=== PATIENT | male | born 1955 ===

== ENCOUNTER 2019-06-25 12:40 | Inpatient (IN) | payer OTHER ==
[~2019-06-25] VITALS: Ht 185.4 cm; Wt 113.2 kg
--- NOTE | ~2019-06-25 | HEMODYNAMI ---
PATIENT:SARKIS BERNARDO MEDICAL RECORD: [id number] : [birth year] [facility] ADMISSION DATE: 06/25/19 Generatedon:06/26/20199:07 Patient name: SARKIS BERNARDO Patient #: [id number] SSN: [id number] : 1955 Date of study: 06/26/2019 Page: Of Hemodynamic Procedure Report Patient Data Patient Demographics Procedure consent was obtained First Name: SARKIS Gender: Male Last Name: [place] : 1955 [facility] Initial: JUSTEN Age: 64 year(s) Patient #: [id number] Race: SSN: [id number] Additional ID: [id number] Contact details [address]: [address] [place] [address] State: [place] City: [place] Zip code: [address] Past Medical History Allergies: No allergy information Admission Admission Data Admission Date: 06/25/2019 Admission Time: 15:18 Arrival Date: 06/26/2019 Arrival Time: 0:00 Room #: D.2125 Height (in.): 72.83 BSA: 2.26 (m2) Height (cm.): 185 BMI: 29.8 (kg/m2) Weight (lbs.): 224.87 Weight (kg.): 102 Lab Results Lab Result Date: 06/26/2019 Lab Result Time: 0:00 Biochemistry Name Units Result Min Max BUN mg/dl 22 --(----)-* 7 18 Creatinine mg/dl 1.4 --(----)*- 0.6 1.3 eGFR ml/min 54 *-(----)-- 90 120 NONAFRICAN CBC Name Units Result Min Max Hematocrit % 36 *-(----)-- 42 54 Hemoglobin g/dl 12.4 *-(----)-- 13.5 17.5 Procedure Procedure Types Cath Procedure Diagnostic Procedure LHC LHC w/Coronaries Procedure Description Procedure Date Procedure Date: 06/26/2019 Procedure Start Time: 8:55 Procedure End Time: 9:02 Procedure Staff Name Function Rai Clark MD Performing Physician Zelda Stover RT Monitor Renita Hairston RT Scrub Tanvi Mon RN Nurse Procedure Data Cath Procedure Fluoroscopy Diagnostic fluoroscopy Total fluoroscopy Time: 1.4 time: 1.4 min min Diagnostic fluoroscopy Total fluoroscopy dose: 532 dose: 532 mGy mGy Contrast Material Contrast Material Type Amount (ml) Isovue 300 62 Entry Location Entry Primary Successful Side Size Upsize Upsize Entry Closure Succes sful Closure Location (Fr) 1 (Fr) 2 (Fr) Remarks Device Remarks Femoral Right 5 Fr Exoseal artery Estimated blood loss: 5 ml Diagnostic catheters Device Type Used For End Catheter Placement MULTIPACK Pigtail 5 Fr Procedure catheter MULTIPACK JL 4.0 5Fr Procedure catheter MULTIPACK 3DRC 5Fr Procedure catheter Procedure Complications No complications Procedure Medications Medication Administration Route Dosage Oxygen etCO2 Nasal cannula 2 l/min Lidocaine 2% added to field 20 Heparin Flush Bag added to field 2 bags (1000units/500ml NS) 0.9% NaCl I.V. 100 ml/hr Versed I.V. 1 mg Fentanyl I.V. 50 mcg Lopressor I.V. 5 mg Versed I.V. 1 mg Fentanyl I.V. 50 mcg Hemodynamics Rest BSA: 2.26 (m2) HGB: 12.4 (g/dl) O2 Consumption: Estimated: 300.08 (ml/min) O2 Co nsumption indexed: Estimated:132.78 (ml/min/m) Heart Rate: 111 (bpm) Snapshots Pre Cath Intra NCS Post Cath Vital Signs Time Heart Resp SPO2 etCO2 NIBP Rhythm Pain Sedation Rate (ipm) (%) (mmHg) (mmHg) Status Level (bpm) 8:41:40 112 27 97 29.1 125/87(93) NSR 0 (11) 10(A) , No pain 8:47:14 111 29 98 21.6 113/84(89) NSR 0 (11) 10(A) , No pain 8:51:22 116 22 94 34.3 117/75(94) NSR 0 (11) 10(A) , No pain 8:55:30 105 21 93 39.6 125/82(98) NSR 0 (11) 10(A) , No pain 8:59:39 96 18 93 46.3 122/75(88) NSR 0 (11) 10(A) , No pain Medications Time Medication Route Dose Verified Delivered Reason Notes Effe ctiveness by by 8:46:12 Oxygen etCO2 2 Rai Buffie used for Nasal l/min Amber Mon RN procedure cannula 8:46:23 Lidocaine 2% added 20ml Rai Rai for local to vial Amber Clark MD anesthetic field 8:46:29 Heparin Flush added 2 Rai Rai used for Bag to bags Amber Clark MD procedure (1000units/500ml field NS) 8:48:29 0.9% NaCl I.V. 100 Rai Buffie Per ml/hr Amber Mon RN physician 8:55:02 Fentanyl I.V. 50 [place] for mcg Amber Mon RN sedation 8:55:56 Versed I.V. 1 mg Rai Buffie for Amber Mon RN sedation 8:58:47 Versed I.V. 1 mg Rai Colvinie for Amber Mon RN sedation 8:58:51 Fentanyl I.V. 50 Rai Colvinie for mcg Amber Mon RN sedation 9:02:17 Lopressor I.V. 5 mg Rai Tinajero Per Amber Mon RN physician Procedure Log Time Note 8:25:48 Zelda Stover RT(R) sent for patient. Start room use. 8:33:44 Diagnostic Cath Status : Elective 8:34:34 Procedure Status Urgent Heart Cath (IP). 8:34:49 Time tracking: Regular hours (M-F 7:00 - 5:00) 8:34:54 Plan of Care:Hemodynamics will remain stable., Cardiac rhythm will remain stable., Comfort level will be maintained., Respiratory function will remain adequate., Patient/ family verbilizes understanding of procedure., Procedure tolerated without complication., Recovers from procedure without complications.. 8:35:57 Patient received from Med II to CCL 1 Alert and oriented. Tansferred to table in Supine position. 8:36:01 Signed procedure consent form obtained from patient. 8:36:02 Warm blankets applied, and kena hugger turned on for patient comfort. 8:36:02 Correct patient and procedure confirmed by team. 8:36:03 ECG and BP/O2 sat monitors applied to patient. 8:36:54 Patient allergic to No allergy information 8:37:02 Patient Weight : 224.87 lbs 8:37:06 Patient Height : 72.83 inches 8:37:12 Arrival Date: 06/26/2019 12:00:00 AM 8:40:36 Vital chart was started 8:40:41 Baseline sample Acquired. 8:40:44 Rhythm: atrial fibrillation 8:40:46 Full Disclosure recording started 8:40:51 H&P Date Dictated: 06/26/2019 New H&P dictated by physician.. 8:40:53 Pre-procedure instructions explained to patient. 8:40:54 Pre-op teaching completed and patient verbalized understanding. 8:41:00 Family in waiting room. 8:41:01 Patient NPO since Midnight. 8:41:04 Is the patient allergic to Iodine/contrast media? No. 8:41:06 Was the patient premedicated? No 8:41:07 Is patient on blood thinner?No 8:41:10 Patient diabetic? No. 8:41:12 Previous problem with sedation/anesthesia? No ? 8:41:14 Snore? Yes 8:41:19 Sleep apnea? No 8:41:20 Deviated septum? No 8:41:21 Opens mouth fully? Yes 8:41:22 Sticks out tongue? Yes 8:41:23 Airway obstruction? No ? 8:41:33 Dentures? Yes partial in tight 8:41:36 Pre procedure: right dorsailis pedis pulse 2+ Normal; easily identifiable; not easily obliterated 8:41:38 Pre procedure: left dorsailis pedis pulse 2+ Normal; easily identifiable; not easily obliterated 8:41:40 Patient pain scale 0/10 ?. 8:41:49 IV patent on arrival in left forearm with 0.9% NaCl at O. 8:41:51 Lab results completed and on chart. 8:41:55 Right Radial & Right Groin area was prepped with chlora-prep and draped in sterile fashion 8:41:56 Alarms reviewed by R. N. 8:41:57 Sharps counted by scrub and verified by R.N. 8:46:12 Oxygen 2 l/min etCO2 Nasal cannula was administered by Tanvi Mon RN; used for procedure; 8:46:23 Lidocaine 2% 20ml vial added to field was administered by Rai Clark MD; for local anesthetic; 8:46:29 Heparin Flush Bag (1000units/500ml NS) 2 bags added to field was administered by Rai Clark MD; used for procedure; 8:46:36 Lab Result : BUN 22 mg/dl 8:46:36 Lab Result : Creatinine 1.4 mg/dl 8:46:36 Lab Result : eGFR NONAFRICAN 54 ml/min 8:46:36 Lab Result : Hemoglobin 12.4 g/dl 8:46:36 Lab Result : Hematocrit 36 % 8:46:43 Use device set Femoral Dx 8:46:44 ACIST Syringe (78249) opened to sterile field. 8:46:44 Bag Decanter (2002S) opened to sterile field. 8:46:45 ACIST Hand Control (48390) opened to sterile field. 8:46:46 ACIST Manifold (66263) opened to sterile field. 8:46:47 Tegaderm 4 x 4 (1626W) opened to sterile field. 8:46:50 Medline Cath Pack ([id number]) opened to sterile field. 8:46:51 DIAGNOSTIC Multipack 5Fr catheter set (BJ0688) opened to sterile field. 8:46:51 SHEATH 5FR Milligan (LGB170) opened to sterile field. 8:46:52 EMERALD Guide Wire (657-392) opened to sterile field. 8:48:29 0.9% NaCl 100 ml/hr I.V. was administered by Tanvi Mon RN; Per physician; 8:53:01 Zero performed for pressure channel P1 8:53:54 --------ALL STOP TIME OUT------ 8:53:55 Final Timeout: patient, procedure, and site verified with staff and physician. All members of the team are in agreement. 8:53:58 Right groin site verified by team. 8:54:02 Fire Safety Assessment: A--An alcohol-based skin anteseptic being used preoperatively., C--Open oxygen or nitrous oxide is being used., D--An ESU, laser, or fiber-optic light is being used. 8:54:04 Physical assessment completed. ASA score P 2 - A patient with mild systemic disease as per Rai Clark MD. 8:54:08 3a) 45-59 Moderately reduced kidney function. 8:54:11 Maximum allowable contrast dose (3.7 X eGFR X 0.75)150 ml. 8:54:16 Sedation plan: IV Moderate Sedation Medication:Versed, Fentanyl 8:55:02 Fentanyl 50 mcg I.V. was administered by Tanvi Mon RN; for sedation; 8:55:51 Procedure started. 8:55:56 Versed 1 mg I.V. was administered by Tanvi Mon RN; for sedation; 8:55:59 Local anesthetic to right femoral artery with Lidocaine 2% by Rai Clark MD.INITIAL ACCESS ONLY 8:56:27 A 5 Fr sheath was inserted into the Right Femoral artery 8:56:39 A MULTIPACK Pigtail 5 Fr catheter was advanced over the wire and used for Procedure. 8:56:57 LV gram done using WINKLER 8:57:01 Injector settings: Ml/sec: 10, Volume: 20, 8:57:38 EF : 55 % 8:57:41 Catheter removed. 8:57:59 A MULTIPACK JL 4.0 5Fr catheter was advanced over the wire and used for Procedure. 8:58:47 Versed 1 mg I.V. was administered by Tanvi Mon RN; for sedation; 8:58:51 Fentanyl 50 mcg I.V. was administered by Tanvi Mon RN; for sedation; 8:59:27 LCA angiography performed. 8:59:29 Catheter removed. 8:59:54 A MULTIPACK 3DRC 5Fr catheter was advanced over the wire and used for Procedure. 9:00:29 RCA angiography performed. 9:00:30 Catheter removed. 9:00:36 EXOSEAL 5Fr (EX500) opened to sterile field. 9:01:11 Sheath removed intact; hemostasis achieved with Exoseal to the Right Femoral artery. 9:01:13 Procedure ended.(Physican Out) 9:01:50 Fluoroscopy time 01.40 minutes. 9::53 Fluoroscopy dose: 532 mGy 9::53 Flurop Dose total: 532 9:02:02 Dose Area Product 67080 mGy/cm. 9:02:06 Contrast amount:Isovue 300 62ml. 9:02:08 Maximum allowable dose exceeded? No. 9:02:11 Sharps counted by scrub and verified by R.N. 9:02:13 Post-op/insertion site Right Femoral artery dressed using a 4 x 4 and Tegaderm. 9:02:16 Post-procedure physical assessment completed. ASA score P 2 - A patient with mild systemic disease as per Rai Clark MD. 9:02:17 Lopressor 5 mg I.V. was administered by Tanvi Mno RN; Per physician; 9:02:18 Post procedure rhythm: unchanged. 9:02:21 Estimated blood loss: 5 ml 9:02:22 Post procedure instruction explained to patient.Patient verbalizes understanding. 9:02:22 Patient needs reinforcement of post procedure teaching. 9:02:45 Procedure and supply charges have been captured, reviewed, submitted and are correct. 9:02:48 Procedure Complication : No complications 9:02:50 Vital chart was stopped 9:02:50 See physician's report for complete and final results. 9:02:52 Report given to [facility]. 9:02:54 Patient transfered to [facility] with Bed. 9:02:56 Procedure ended. 9:02:56 Full Disclosure recording stopped 9:03:01 End room use (Document Last) Device Usage Item Name Manufacture Quantity Catalog Hospital Part Current Minimal L ot# / Number Charge Number Stock Stock Serial# Code ACIST Acist 1 10747 196045 270550 089948 20 Syringe Medical (89052) Systems Inc Bag Microtek 1 609636 45872 731336 5 Decanter Medical Inc. () ACIST Hand Acist 1 43845 034801 048963 298726 5 Control Medical (17210) Systems Inc ACIST Acist 1 70103 390621 290994 994104 5 Manifold Medical (23821) Systems Inc Tegaderm 4 3M 1 1626W 887238 244322 510789 5 x 4 (1626W) Medline Medline 1 [id number] 238103 28205 243482 5 Cath Pack ([id number]) DIAGNOSTIC Cardinal 1 WD1859 477221 42913 530743 30 Multipack Health 5Fr catheter set (VV0512) SHEATH 5FR Terumo 1 WXJ723 864072 725275 828759 5 Milligan (UDH813) EMERALD Cardinal 1 502-455 992722 814816 072111 5 Guide Wire Health (502-867) MULTIPACK Cardinal 1 918108 5 Pigtail 5 Health Fr catheter MULTIPACK Cardinal 1 680554 5 JL 4.0 5Fr Health catheter MULTIPACK Cardinal 1 845921 5 3DRC 5Fr Health catheter EXOSEAL 5Fr Cardinal 1 EX500 626754 485494 949101 10 (EX500) Health Signature Audit [place] Stage Time Signature Unsigned Intra-Procedure 06/26/2019 Zelda Stover 9:06:37 AM RT(R) Intra-Procedure 06/26/2019 Tanvi Mon RN 9:07:08 AM Intra-Procedure 06/26/2019 Rai Clark 9:07:31 AM [place] [id number] [place] [address]
[2019-06-25 15:25] VITALS: BP 145/93; BMI 29.7
--- NOTE | 2019-06-25 15:28 | NUR ---
RECIVED PER EMS FROM [facility] TO ROOM 2125. ADMIT ASSESSMENT PER RN
[2019-06-25 16:50] LABS: BASOPHILS 0.4 % (0-2); EOSINOPHILS 0 % (0-7); HEMATOCRIT 40.8 % (42.0-54.0); HEMOGLOBIN 14.4 g/dL (13.5-17.5); IMMATURE GRANULOCYTES 1.7 % (0-5); LYMPHOCYTES 20.6 % (15-50); MCH 30.6 pg (26.0-34.0); MCHC 35.3 g/dL (31.0-37.0); MCV 86.8 fL (80.0-100.0); MONOCYTES 5.7 % (2-11); NEUTROPHILS 71.6 % (40-80); PLATELET COUNT 119 10x3/uL (130-400); RDW 14.1 % (11.5-14.5); WBC 11.7 10x3/uL (4.8-10.8)
[2019-06-25 17:40] LABS: ALBUMIN 2.2 g/dL (3.4-5.0); ALKALINE PHOSPHATASE 354 U/L (46-116); ALT (SGPT) 274 U/L (10-68); AMYLASE - SERUM 44 U/L (25-115); BILIRUBIN - INDIRECT 0.31 mg/dL (0.00-1.00); BILIRUBIN - TOTAL 1.31 mg/dL (0.2-1.3); CALC OSMOLALITY 275 mosm/kg (275-300); CALCIUM 7.9 mg/dL (8.5-10.1); CARBON DIOXIDE 25.5 mmol/L (21.0-32.0); CHLORIDE - SERUM 101 mmol/L (98-107); GLUCOSE 104 mg/dL (74-106); LIPASE 150 U/L (73-393); POTASSIUM - SERUM 3.4 mmol/L (3.5-5.1); PROTEIN - SERUM 5.7 g/dL (6.4-8.2); SODIUM 137 mmol/L (136-145); UREA NITROGEN 17 mg/dL (7-18); eGFR NON AFRICAN AMERICAN 80 mL/min (90-120)
[2019-06-25 17:42] LABS: TROPONIN-I 0.065 ng/mL (0.000-0.060)
--- NOTE | 2019-06-25 19:35 | NUR ---
ASSESSMENT COMPLETE, PT A&O. RESPERATIONS NON LABORED ON O2 AT 2 LITERS VIA NC. IV TO LEFT ARM WITH WITH NS INFUSING AT 50 CC/HR. PT CURRENTLY DENIES PAIN OR NEEDS. BED LOW, CL IN REACH. MULTIPLE FAMILY MEMBERS AT BED SIDE.
[2019-06-25 20:15] VITALS: BP 123/77
--- NOTE | 2019-06-25 22:13 | NUR ---
CALLED TO ROOM, CHECKED PTS TEMP. 102 AX. TYLENOL 1000 MG GIVEN, ALONG WITH ICE PACKS TO PLACE UNDER PTS ARMS.
[2019-06-26 00:02] VITALS: BP 129/79
--- NOTE | 2019-06-26 03:23 | NUR ---
CHECKED PTS TEMP. 103.2 AX. MOTRIN 400 MG GIVEN WITH FRESH ICE WATER.
[2019-06-26 04:00] VITALS: BP 142/60
--- NOTE | 2019-06-26 04:30 | NUR ---
I have reviewed this patient and I concur with the Shift Assessment completed by the Licensed Practical Nurse today this shift.
[2019-06-26 06:23] LABS: HEMOGLOBIN 12.4 g/dL (13.5-17.5); MCH 30.2 pg (26.0-34.0); MCHC 34.4 g/dL (31.0-37.0); MCV 87.8 fL (80.0-100.0); MEAN PLATELET VOLUME 11.1 fL (7.4-10.4); PLATELET COUNT 126 10x3/uL (130-400); RDW 14.4 % (11.5-14.5); WBC 12.5 10x3/uL (4.8-10.8)
--- NOTE | 2019-06-26 06:30 | NUR ---
PT CLIPPED AND HIBICLENSE BATH GIVEN.
[2019-06-26 06:31] LABS: ALBUMIN 1.8 g/dL (3.4-5.0); ANION GAP 10.2 mmol/L (8-16); BILIRUBIN - TOTAL 1.05 mg/dL (0.2-1.3); CALCIUM 7.4 mg/dL (8.5-10.1); CARBON DIOXIDE 28.1 mmol/L (21.0-32.0); POTASSIUM - SERUM 3.3 mmol/L (3.5-5.1)
[2019-06-26 06:39] LABS: CREATININE - SERUM 1.4 mg/dL (0.6-1.3)
--- NOTE | 2019-06-26 08:32 | NUR ---
ASSESSMENT DONE. DENIES NEEDS
--- NOTE | 2019-06-26 08:32 | NUR ---
TO CANE PUSHER PER BED
[2019-06-26 08:45] VITALS: BP 107/60
--- NOTE | 2019-06-26 09:25 | NUR ---
RETURN FROM SUPERVISOR CEREAL PER BED. RT THEODORE POOLE C/D/I,. PULSE PALP. AT SIDE.
[2019-06-26 11:01] LABS: ANISOCYTOSIS OCC; LYMPHOCYTES 23 % (15-50); MONOCYTES 14 % (2-11); NEUTROPHILS 56 % (40-80); PLATELET ESTIMATE NORMAL
--- NOTE | 2019-06-26 11:12 | NUR ---
I have reviewed this patient and I concur with the Shift Assessment completed by the Licensed Practical Nurse today this shift.
[2019-06-26 13:57] VITALS: BP 111/75
[2019-06-26 14:50] VITALS: BMI 29.6
[2019-06-26 17:30] VITALS: BP 107/86
--- NOTE | 2019-06-26 18:41 | NUR ---
WITHOUT CHANGES OR DISTRESS NOTED AT THIS TIME.
--- NOTE | 2019-06-26 19:00 | NUR ---
REPORT RECEIVED, WILL CONTINUE POC. PATIENT IS A/OX4, UP AD JAKY. IV TO LT FA INFUSING NS@125, PATENT, DRGS C/D/I. RT GROIN DRSG C/D/I. NO S/S OF DISTRESS OBSERVED, RR EVEN AND UNLABORED ON 2L O2 VIA NC. SOME ABD DISTENTION NOTED. PATIENT DENIES FURTHER NEEDS AT THIS TIME. AT BEDISDE. CL IN REACH, BED LOCKED AND LOWERED. WILL CTM.
[2019-06-26 20:00] VITALS: BP 128/68
--- NOTE | 2019-06-26 21:40 | NUR ---
PATIENT TEMP 102.1, MOTRIN GIVEN. WILL CTM.
--- NOTE | 2019-06-26 22:30 | NUR ---
PATIENT TEMP DOWN TO 100.2 WILL CTM.
[2019-06-27] VITALS: BP 94/58
--- NOTE | 2019-06-27 01:43 | NUR ---
I have reviewed this patient and I concur with the Shift Assessment completed by the Licensed Practical Nurse today this shift.
[2019-06-27 02:01] LABS: APPEARANCE HAZY (CLEAR); BILIRUBIN NEGATIVE (NEGATIVE); COLOR DK YELLOW (YELLOW); GLUCOSE NEGATIVE (NEGATIVE); KETONE NEGATIVE (NEGATIVE); NITRITE NEGATIVE (NEGATIVE); PROTEIN 1+ mg/dL (NEGATIVE); UROBILINOGEN NORMAL (NORMAL)
[2019-06-27 02:03] LABS: BACTERIA FEW /hpf (NEGATIVE); EPITHELIAL CELLS 0-5 /hpf (0-5); RED CELLS - URINE 0-5 /hpf (0-5); WHITE CELLS - URINE 0-5 /hpf (NEGATIVE)
[2019-06-27 02:04] LABS: AMORPHOUS SEDIMENT >1+ /lpf (NONE SEEN)
--- NOTE | 2019-06-27 03:38 | NUR ---
PATIENT TEMP 102.5, MOTRIN GIVEN WITH SMALL SIP OF WATER. WILL CTM.
--- NOTE | 2019-06-27 04:33 | NUR ---
PATIENT TEMP 102.3, TYLENOL GIVEN WITH SMALL SIP OF WATER. COOL WASH CLOTHES PLACED ALL OVER PATIENTS BODY. WILL CTM.
[2019-06-27 04:39] LABS: BASOPHILS 0.6 % (0-2); EOSINOPHILS 0 % (0-7); HEMATOCRIT 37.9 % (42.0-54.0); HEMOGLOBIN 13.1 g/dL (13.5-17.5); IMMATURE GRANULOCYTES 1.7 % (0-5); LYMPHOCYTES 26.9 % (15-50); MCH 30.3 pg (26.0-34.0); MCHC 34.6 g/dL (31.0-37.0); MCV 87.7 fL (80.0-100.0); MEAN PLATELET VOLUME 11.4 fL (7.4-10.4); MONOCYTES 5.5 % (2-11); NEUTROPHILS 65.3 % (40-80); PLATELET COUNT 123 10x3/uL (130-400); RBC 4.32 10x6/uL (4.20-6.10); RDW 14.7 % (11.5-14.5); WBC 14.1 10x3/uL (4.8-10.8)
[2019-06-27 05:06] LABS: ALBUMIN 1.8 g/dL (3.4-5.0); ANION GAP 12.3 mmol/L (8-16); BILIRUBIN - TOTAL 0.96 mg/dL (0.2-1.3); CALCIUM 7.3 mg/dL (8.5-10.1); CREATININE - SERUM 1.5 mg/dL (0.6-1.3); POTASSIUM - SERUM 3.3 mmol/L (3.5-5.1); PROTEIN - SERUM 5.2 g/dL (6.4-8.2)
--- NOTE | 2019-06-27 05:37 | NUR ---
PATIENT TEMP DOWN TO 99.2. VANC HUNG. WILL CTM.
--- NOTE | 2019-06-27 07:13 | NUR ---
REPORT RECEIVED. WILL CONTINUE WITH POC. PT CURRENTLY LYING SEMI FOWLERS. CALL LIGHT W/I REACH. PT IS RESTING AT THIS TIME. NS INFUSING @175ML/HR VIA L.FOR PIV. RR EVEN AND UNLABORED ON 2L 02. PT IS NPO FOR FOR SURGERY THIS AM. DILUADID UPHOLSTERER INSIDE SET FOR 0.2. NO S/S OF DISTRESS NOTED. WILL CTM.
--- NOTE | 2019-06-27 09:14 | HP ---
PATIENT: SARKIS CORTEZ MEDICAL RECORD: [id number] ACCOUNT: [id number] LOCATION:[address] : [birth year] ADMISSION DATE: 06/25/19 PCP: COLEMAN CLARK MD HISTORY AND PHYSICAL EXAMINATION DIAGNOSES: 1. Elevated troponin, non-Q-wave myocardial infarction. 2. Cholecystitis. HISTORY OF PRESENT ILLNESS: Mr. Cortez presented to [facility] with abdominal pain, definitely has cholecystitis; however, he was having a combination of abdominal pain and chest pain, hence troponin was drawn. Troponin is elevated. His EKG is with nonspecific ST-T abnormalities. He has no cardiac history. He continues to have chest pain and abdominal pain. It is very difficult for him to tell the difference between the two. PHYSICAL EXAMINATION: CONSTITUTIONAL/GENERAL APPEARANCE: Well nourished, well developed, appears stated age. EYES: Lids and conjunctivae noninjected. No discharge. No pallor. ENT: Lips within normal limit. No cyanosis. No pallor. NECK: Carotid arteries, bilateral normal upstroke. No bruits. No thrills. No jugular venous pressure or distention. CERVICAL LYMPH NODES: Nontender. Nonenlarged. THYROID: Not enlarged. No nodules. CARDIOVASCULAR: Precordial exam, nondisplaced. No heaves or pericardial thrills. Rate and rhythm, regular. Heart sounds, normal S1, normal S2. No S3, no gallop, no rub. Systolic murmur, not heard. Diastolic murmur, not heard. RESPIRATORY: Respiratory effort, unlabored. Normal curvature. No thoracic deformity. No chest wall tenderness. Percussion, resonant. Auscultation, clear. No wheezes, no rales, no rhonchi. ABDOMEN: Soft, nondistended, nontender. No abdominal pain, no vomiting and normal appetite. MUSCULOSKELETAL: No joint tenderness, normal gait, normal tone. SKIN: Warm and dry. OVERALL IMPRESSION: Elevated troponin compatible with non-Q-wave myocardial infarction. At this time, we will repeat the troponin here to make sure it is elevated at our institution, will have surgery see him. Most likely proceed with coronary angiography in the a.m. TRANSINT:[id number] Voice Confirmation ID: [id number] DOCUMENT ID: [id number] HISTORY AND PHYSICAL [id number] SARKIS CORTEZ COLEMAN CLARK MD at 0914 CC: [id number] DICTATION DATE: 06/25/19 1604 INSPECTOR AUTOMATIC TYPEWRITER: 06/25/19 194 ADM IN [place] [id number] [place] [id number]
--- NOTE | 2019-06-27 09:14 | EC ---
PATIENT:SARKIS BERNARDO DATE OF SERVICE: 06/25/19 SEX: M MEDICAL RECORD: [id number] DATE OF : [birth year] LOCATION:D.M2 D.212 AGE OF PATIENT: 64 ADMISSION DATE: 06/25/19 REFERRING PHYSICIAN: INTERPRETING PHYSICIAN: COLEMAN CLARK MD ECHOCARDIOGRAM REPORT ECHO CHARGES 4 ECHO COMPLETE Date: 06/26/19 CLINICAL DIAGNOSIS: NE ECHOCARDIOGRAPHIC MEASUREMENTS (adult normal given) AC root (d.<3.7cm) 2.7 cm LV Septum d (<1.2 cm> 1.1 cm Valve Excursion 1.9 cm LV Septum (systole) 1.4 cm Left Atria (s.<4.0cm> 3.7 cm LVPW d(<1.2cm) 1.7 cm RV (d.<2.3cm) 4.0 cm LVPW (sytole) 1.9 cm LV diastole(<5.6CM) 5.7 cm MV E-F(>70mm/sec) cm LV systole 3.7 cm LVOT Diameter 1.9 cm MV exc.(>10mm) cm Est.ejection fraction (50-75%) % DOPPLER: LVIT cm/sec A 55 cm/sec E 62 cm/sec LA cm/sec RVSP 35.4 mmHg LVOT 125 cm/sec AOP1/2T m/s Asc. Ao 148 cm/sec RVOT 72 cm/sec RA cm/sec PA 103 cm/sec AV Gradient Peak 8.8 mmHg AV Mean 5.0 mmHg AV Area 2.6 cm MV Gradient Peak 2.6 mmHg MV Mean 1.5 mmHg MV Area cm COMMENTS: Cable Tool Operator: Sergio [facility] Cinder Worker: 1 Dr. Clark TAPE# PACS Pericardial Effusion N DATE OF SERVICE: 06/26/2019 FINDINGS: 1. Left ventricular chamber size is within normal limits. Left ventricular systolic function is normal at 55%. 2. Left atrium, right atrium, and right ventricular chamber sizes are within normal limits. 3. Valvular structures have normal structure and motion. 4. Doppler interrogation reveals no significant valvular insufficiency or stenosis. ECHOCARDIOGRAM REPORT [id number] SARKIS BERNARDO 5. No evidence of pericardial effusion or left ventricular thrombus. TRANSINT:[id number] Voice Confirmation ID: [id number] DOCUMENT ID: [id number] COLEMAN CLARK MD at 0914 CC: [id number] DICTATION DATE: 06/26/19 1226 ASSISTANT WOMEN'S SOCCER COACH: 06/26/192035 ADM IN [place] [id number] [place] [id number]
--- NOTE | 2019-06-27 09:14 | OP ---
PATIENT NAME: SARKIS BERNARDO MEDICAL RECORD: [id number] :59 LOCATION:D.M2 D.2125 ADMISSION DATE:06/25/19 SURGEON: COLEMAN CLARK MD DATE OF OPERATION: 06/26/2019 PROCEDURES: 1. Left heart catheterization. 2. Selective coronary angiography. 3. Left ventriculogram. INDICATION: Non-Q-wave myocardial infarction. PROCEDURE IN DETAIL: After informed consent was obtained and after a detailed description of the risks, benefits as well as alternative therapies, the patient elected to proceed with angiogram and heart catheterization. FINDINGS: Left ventriculogram was performed in standard 30-degree WINKLER view, reveals good cardiac wall motion, ejection fraction 65%. SELECTIVE CORONARY ANGIOGRAPHY: Left main, left anterior descending, left circumflex, right coronary artery have only mild irregularities, but no flow-limiting stenosis. OVERALL IMPRESSION: Minimal coronary artery disease is present. No flow-limiting stenosis. The increased troponin was secondary to demand ischemia from the sepsis syndrome from the cholecystitis. At this time, no other cardiac workup or treatment is necessary. TRANSINT:[id number] Voice Confirmation ID: [id number] DOCUMENT ID: [id number] COLEMAN CLARK MD at 0914 CC: [id number] DICTATION DATE: 06/26/19903 FINAL ASSEMBLY WORKER: 06/26/19 1510 [place] [id number]
[2019-06-27 09:28] VITALS: BP 128/79
--- NOTE | 2019-06-27 12:03 | NUR ---
PREOP MEDICATIONS ADMININSTERED PER OR REQUEST. WILL CTM. NS INFUSING @KVO VIA L.FOR PIV.
--- NOTE | 2019-06-27 12:52 | NUR ---
TEMP OF 100.2 AT 1250. ADMININSTERED DOSE OF MOTRIN AND PT WAS TRANSFERED TO SURGERY. WILL CTM.
--- NOTE | 2019-06-27 14:33 | NUR ---
NO CHOLANGIOGRAM DONE
--- NOTE | 2019-06-27 15:45 | NUR ---
SCLERA EDEMA NOTED TO RT EYE
--- NOTE | 2019-06-27 15:45 | NUR ---
PATIENT CARE ASSUMED AT THIS TIME. REPORT TAKEN FROM Sara CORONA RN.
--- NOTE | 2019-06-27 15:52 | NUR ---
XOPENEX 0.63 UPDRAFT STARTED AT THIS TIME
--- NOTE | 2019-06-27 16:07 | NUR ---
ANESTHESIA CONSULTED FOR LABORED AND SHALLOW BREATHING. NEW ORDERS FOR ABG'S AND CHEST X-RAY.
--- NOTE | 2019-06-27 16:10 | NUR ---
RT AT BEDSIDE FOR ABG'S AND 12 LEAD EKG
--- NOTE | 2019-06-27 16:35 | NUR ---
TRANSFER PATIENT TO ICU AT THIS TIME PER ANESTHESIA FOR FURTHER TREATMENT AND INITIATION OF BIPAP.
--- NOTE | 2019-06-27 20:10 | NUR ---
AND DAUGHTER AT BEDSIDE - SHIFT ASSESSMENT COMPLETED, AMS AT THIS TIME VSS - CPOC
[2019-06-27 22:00] VITALS: BP 107/66
[2019-06-27 23:00] VITALS: BP 101/65
--- NOTE | 2019-06-27 23:15 | NUR ---
PT AWAKE ALERT AND ORIENTED - ASKING FOR ICE CHIPS VSS CPOC
[2019-06-28] VITALS (24 sets, daily range): BP systolic 90–176; BP diastolic 62–116
--- NOTE | 2019-06-28 00:27 | NUR ---
PATIENTS STATES SHE WANTS TO BE NOTIFIED IF BIPAP IS NEEDED
--- NOTE | 2019-06-28 02:33 | NUR ---
PT RESTING COMFORTABLY. STATED SHE DOES NOT WANT PT ON BILEVEL ANYMORE. HFNC IN PLACE FIO2 8L SPO2 CURRENTLY 97% ZERO CYANOSIS RR 22 NO IMMEDIATE S/S RESP DISTRESS
[2019-06-28 04:57] LABS: ALBUMIN 1.8 g/dL (3.4-5.0); BILIRUBIN - TOTAL 0.87 mg/dL (0.2-1.3); CARBON DIOXIDE 27.3 mmol/L (21.0-32.0); CREATININE - SERUM 1.4 mg/dL (0.6-1.3); MAGNESIUM - SERUM 2.4 mg/dL (1.8-2.4); PHOSPHOROUS 3.5 mg/dL (2.5-4.9); PROTEIN - SERUM 5.6 g/dL (6.4-8.2)
[2019-06-28 04:58] LABS: ANION GAP 10.6 mmol/L (8-16); POTASSIUM - SERUM 3.9 mmol/L (3.5-5.1)
[2019-06-28 05:01] LABS: HEMATOCRIT 35.2 % (42.0-54.0); HEMOGLOBIN 11.6 g/dL (13.5-17.5); MCH 30.3 pg (26.0-34.0); MEAN PLATELET VOLUME 11.1 fL (7.4-10.4); PLATELET COUNT 131 10x3/uL (130-400); RBC 3.83 10x6/uL (4.20-6.10); RDW 15.2 % (11.5-14.5); WBC 10.6 10x3/uL (4.8-10.8)
[2019-06-28 05:04] LABS: MCV 91.9 fL (80.0-100.0)
[2019-06-28 05:54] LABS: LYMPHOCYTES 27 % (15-50); MONOCYTES 3 % (2-11); NEUTROPHILS 66 % (40-80); PLATELET ESTIMATE DECREASED
--- NOTE | 2019-06-28 06:45 | NUR ---
PAGED DR ARREOLA NEW ORDERS RECEIVED
--- NOTE | 2019-06-28 09:56 | NUR ---
PT UNABLE TO VOID. 650CC NOTED ON BLADDER SCANNER. REPORTED TO DR VERA. REC'D ORDER TO PLACE CAR CATH. EXPLANED PROCEDURE.
--- NOTE | 2019-06-28 10:51 | NUR ---
DR ARREOLA HERE THIS AM. REPORTED CONFUSION AND REPORTED TACHYCARDIA HR 120. INSTRUCTED I.S. PT PULLS 1500. FC PLACED. 600CC CL YELLOW URINE NOTED.
--- NOTE | 2019-06-28 11:37 | OP ---
PATIENT NAME: SARKIS BERNARDO MEDICAL RECORD: [id number] :59 LOCATION:.[facility] D.2312 ADMISSION DATE:06/25/19 SURGEON: BRAXTON CAO MD DATE OF OPERATION: 06/27/2019 PREOPERATIVE DIAGNOSES: 1. Acute cholecystitis. 2. Ventral hernia. 3. Sepsis. POSTOPERATIVE DIAGNOSES: 1. Acute cholecystitis. 2. Ventral hernia. 3. Sepsis. PROCEDURES: 1. Laparoscopic cholecystectomy. 2. Ventral hernia repair. SURGEON: Braxton Cao MD REPORT OF PROCEDURE: The patient's abdomen was prepped and draped in sterile fashion. A semicircular incision was made on the inferior aspect of the umbilicus. Electrocautery was used to dissect through subcutaneous tissues. We encountered a hernia sac. This hernia sac was opened up and it contained fatty tissue. We were able to free the fascia above this on the top layer and placed 0-Vicryls on the lateral aspects of the hernia. Bluntly penetrated the abdominal cavity and placed a 12-mm Diane port. At this point, we insufflated the abdomen and placed a 5-mm trocar in the epigastrium and 2 more 5-mm trocars in the right subcostal region. The gallbladder was grasped and elevated. It was noted to be swollen with some mild acute inflammatory changes. There is no sign of any perforation. There was no surrounding fluid. We were able to dissect down and find the cystic duct and cystic artery. The cystic artery was clipped proximally and distally and ligated in standard fashion. The cystic duct was clipped twice proximally. As I was grasping the cystic duct, a small tear was found. We used this to place a Cook cholangiocath as we shot some dye through the Cook cholangiocath it appeared to be eviscerating out and we went back and looked in the Cook cholangiocath it actually gone through the back wall of the cystic duct. With the cystic duct being so fragile, I decided not to try to attempt any further cholangiogram. The Cook cholangiocath was removed and the cystic duct was clipped 3 times distally and ligated. The gallbladder was taken off the liver bed using electrocautery and placed in the right upper quadrant. Any bleeding from the liver bed was treated with electrocautery. At this point, I inspected the remainder pf the abdomen. The patient's appendix appeared to be normal. The stomach had no sign of any inflammatory changes. The small bowel was visualized and had no signs of any perforation or enteric contents. The abdomen had no ascitic fluid within it. The liver itself appeared to be mildly inflamed but no masses or lesions were visualized. At this point, the ports and insufflation were then removed. The gallbladder was taken out through the umbilicus. The umbilical fascia was closed transversely OPERATIVE REPORT [id number] SARKIS BERNARDO with interrupted 0-Prolenes times 5. The umbilicus was tacked down to the fascia using an interrupted 3-0 Vicryl and the subcutaneous tissues were reapproximated with interrupted 3-0 Vicryl. The skin incisions were all closed with subcutaneous 5-0 Monocryl and a total of 10 mL of 0.25% Marcaine with epinephrine was infused into the surrounding tissues. COMPLICATIONS: None. CONDITION: Stable. ANESTHESIA: General endotracheal and local. BLOOD LOSS: 50 mL. TRANSINT:[id number] Voice Confirmation ID: [id number] DOCUMENT ID: [id number] BRAXTON CAO MD at 1137 CC: CAHDD YOU MD [id number] DICTATION DATE: 06/27/19 1506 TEAR DOWN MAN: 06/28/19 0038 ADM IN [facility] [address] [place] [address]
--- NOTE | 2019-06-28 11:58 | NUR ---
PT CONFUSED AND PULLING AT ALL LINES. BIPAP TAKEN OFF AND REORIENTED. PT STILL PULLING AT LINES AND STATING NEED TO VOID. REORIENTED ABOUT CATHETER. PT STILL CONFUSED. AT BS. EXPLANED THAT DR CLARK HERE ON ROUNDS. REPORTS THAT ALL HE NEEDS IS SLEEP.
--- NOTE | 2019-06-28 12:23 | NUR ---
CM IN WITH FAMILY. FAMILY REPORT THAT THEY WANT PT TRANSFERED.
--- NOTE | 2019-06-28 12:42 | NUR ---
NUTRITION F/U PT STARTED ON CLEAR LIQUID DIET. TO ADVANCE TOLERATED. WILL MONITOR PT PROGRESS. RD FOLLOWING
--- NOTE | 2019-06-28 13:22 | NUR ---
DR VERA HERE, PT CRAWLING OOB, 3 NURSES ASSISTING TO KEEP PT IN BED. BED ALARM GOING OFF. HCG BATH AND LINENS CHANGED. GEODON GIVEN ORDERED.
--- NOTE | 2019-06-28 13:58 | NUR ---
TEMP CONTINUES TO BE 103. TYLENOL GIVEN.
[2019-06-28 14:21] LABS: APPEARANCE HAZY (CLEAR); BILIRUBIN NEGATIVE (NEGATIVE); COLOR YELLOW (YELLOW); GLUCOSE NEGATIVE (NEGATIVE); KETONE NEGATIVE (NEGATIVE); NITRITE NEGATIVE (NEGATIVE); PROTEIN 1+ mg/dL (NEGATIVE); SPECIFIC GRAVITY 1.015 (1.005-1.020); UROBILINOGEN NORMAL (NORMAL)
[2019-06-28 14:22] LABS: BACTERIA FEW /hpf (NEGATIVE); EPITHELIAL CELLS OCC /hpf (0-5); WHITE CELLS - URINE OCC /hpf (NEGATIVE)
[2019-06-28 16:53] LABS: BASOPHILS 0.4 % (0-2); EOSINOPHILS 0 % (0-7); HEMATOCRIT 34.4 % (42.0-54.0); HEMOGLOBIN 11.4 g/dL (13.5-17.5); IMMATURE GRANULOCYTES 3.4 % (0-5); LYMPHOCYTES 19.7 % (15-50); MCH 30.1 pg (26.0-34.0); MCHC 33.1 g/dL (31.0-37.0); MCV 90.8 fL (80.0-100.0); MONOCYTES 7.1 % (2-11); NEUTROPHILS 69.4 % (40-80); PLATELET COUNT 129 10x3/uL (130-400); RBC 3.79 10x6/uL (4.20-6.10); RDW 15.1 % (11.5-14.5); WBC 8.2 10x3/uL (4.8-10.8)
[2019-06-28 17:00] LABS: ALBUMIN 1.7 g/dL (3.4-5.0); ANION GAP 13.7 mmol/L (8-16); BILIRUBIN - TOTAL 0.83 mg/dL (0.2-1.3); CALCIUM 7.2 mg/dL (8.5-10.1); CARBON DIOXIDE 24.9 mmol/L (21.0-32.0); CREATININE - SERUM 1.6 mg/dL (0.6-1.3); POTASSIUM - SERUM 3.6 mmol/L (3.5-5.1); PROTEIN - SERUM 5.3 g/dL (6.4-8.2)
--- NOTE | 2019-06-28 17:31 | MORECARE ---
CASE MANAGEMENT DISCHARGE SUMMARY PATIENT: SARKIS BERNARDO UNIT: [id number] ADM DATE: 06/25/19 AGE: 64 : 59 SEX: M ROOM/BED: D.2312 AUTHOR: LILLIAN LÓPEZ PHYSICIAN: REFERRING PHYSICIAN: ADELAIDA CAO MD DATE OF SERVICE: 06/28/19 Discharge Plan Patient Name: SARKIS BERNARDO [facility] [facility] 1955 Planned Disposition: Anticipated Discharge Date: Discharge Date: Expected LOS: Initial Reviewer: [email or web address] Initial Review Date: 06/28/2019 Generated: 06/28/19 6:31 pm External Providers External Provider: OTHER-OTHER Next Contact Date: Service Request Date: Service Type: Resolution: Reviewer: Comments: Patient Name: SARKIS BERNARDO Page [phone] at 1731 All edits/amendments must be made on the electronic document DICTATION DATE: 06/28/191730 SMALL STOCK FACER: JAX 06/28/191730 RPT#: [id number] DC DATE: STATUS: ADM IN [facility] [address] [place] [address] END OF REPORT
--- NOTE | 2019-06-28 18:02 | MORECARE ---
CASE MANAGEMENT DISCHARGE SUMMARY PATIENT: SARKIS BERNARDO UNIT: [id number] ADM DATE: 06/25/19 AGE: 64 : 59 SEX: M ROOM/BED: D.2312 AUTHOR: RENEDOC PHYSICIAN: REFERRING PHYSICIAN: ADELAIDA CAO MD DATE OF SERVICE: 06/28/19 Discharge Plan Patient Name: SARKIS BERNARDO Facility: [facility]:[place] : 1955 Planned Disposition: Anticipated Discharge Date: Discharge Date: Expected LOS: Initial Reviewer: [email or web address] Initial Review Date: 06/28/2019 Generated: 06/28/19 7:01 pm Comments DCP- Discharge Planning Updated by [email or web address]: Melina Alatorre on 06/28/19 4:[address] Patient Name: SARKIS BERNARDO Admission Status: Elective Accout number: [id number] Admission Date: 06-25-2019 : 1955 Admission Diagnosis:SEPSIS, UNSPECIFIED ORGANISM Attending: ADELAIDA CAO Current LOS: 3 Anticipated DC Date: Planned Disposition: Primary Insurance: [facility] [employer] Discharge Planning Comments: CM came to speak to family per request. Patient is confused and climbing out of bed. Family very emotional. Family requested that patient be transferred to [facility]. Family feels like patient is getting worse and they wanting to seek the best care possible and believe that [facility] can provide that care. CM contacted [facility] house and Dr. Cao of family request and CM asked if this would be a lateral transfer or higher level of care. Dr. Cao stated that it would be a lateral transfer. CM spoke with family to let them know that with it being a lateral transfer that insurance will not cover the transfer. Family requested CM to get momin quote. CM called [employer] and was given a momin quote $2300.00 with 1/2 due up front then they will work out a payment plan for the rest. CM notified family of quote and they wished to go ahead with transfer request. CM called [facility] transfer center [phone] and fax [phone]. Dr. Cao spoke with physician (hospitalist ICU) and then spoke with infection disease specialist. The infection disease physician requested some additional testing and to give patient 24-48 hrs. here and then if no improvement then [facility] may accept at that point. Dr. Cao spoke with family and let them know what [facility] is requesting. [facility] transfer center stated to call them back if needed over the weekend. [phone]. CM notified CM supervisor paper coating that [facility] infection disease specialist would be admitting patient if he is transferred to [facility]. CM supervisor paper coating stated that it would be classified as a higher level of care at that point because [facility] doesn't have an infection disease specialist. CM notified the patient's family that transfer would be considered a higher level of care if patient is accepted and transferred. CM will continue to follow and assist with discharge planning / needs. Audit Lead: Melina Winston DP export: 06/28/19 4:31 p Patient Name: SARKIS BENRARDO Page 45388 at 1802 All edits/amendments must be made on the electronic document DICTATION DATE: 06/28/191800 DENTAL LABORATORY TECHNICIAN APPRENTICE: JAX 06/28/191800 RPT#: [id number] DC DATE: STATUS: ADM IN [facility] [address] [place] [address] END OF REPORT
--- NOTE | 2019-06-28 19:00 | NUR ---
PT DROSWY, PT WAKES TO NAME, AND IS ALERT AND ORIENTED. PT C/O DISCOMFORT TO ABD, BUT RATES PAIN 3/10, RESP EVEN AND NON LABORED AT THIS TIME, NO CHANGES NOTED FOR NURSE REPORT
--- NOTE | 2019-06-28 20:06 | NUR ---
PT C/O FEELING LIKE HE IS NEEDING TO PEE. PT REPOSITIONED AND PT STILL C/O DISCOMFORT, DR. VERA CALLED ABOUT CONCERNS AND ADVISED TO RECHECK CAR PLACEMENT.
--- NOTE | 2019-06-28 20:12 | NUR ---
CAR WAS NOTED TO BE SECURED WITH A STAT LOCK WITH CAR TAUNT. CAR PLACEMENT WAS RECHECKED, BULB INFLATED WITH DIFFCULTY, RESECURED WITH STAT LOCK WITH SLACK IN THE CAR. PT STATE THAT IT FEEL A LOT BETTER AT THIS TIME.
--- NOTE | 2019-06-28 21:25 | NUR ---
PT C/O PAIN TO ABD, PAIN GIVEN AT THIS TIME
--- NOTE | 2019-06-28 23:00 | NUR ---
PT REASSESSMENT COMPLETED AT THIS TIME, PT RESTING WITH EYES CLOSED, RESP EVEN NON LABORED, NO COMPLAINTS AT THIS TIME.
[2019-06-29] VITALS (14 sets, daily range): BP systolic 96–144; BP diastolic 66–86; Ht 185.4 cm; Wt 113.2 kg
--- NOTE | 2019-06-29 01:00 | NUR ---
PT RESTING WITH EYES CLOSED, NO CHANGES NOTED, VSS, WILL MONITOR FOR CHANGES
--- NOTE | 2019-06-29 03:00 | NUR ---
PT REASSESSMENT COMPLETED AT THIS TIME, VSS NO CHANGES NOTED
[2019-06-29 03:27] LABS: HEMOGLOBIN 11.3 g/dL (13.5-17.5); MCH 30.1 pg (26.0-34.0); MCHC 32.3 g/dL (31.0-37.0); MEAN PLATELET VOLUME 11.4 fL (7.4-10.4); PLATELET COUNT 130 10x3/uL (130-400); RBC 3.76 10x6/uL (4.20-6.10); RDW 15.5 % (11.5-14.5); WBC 8.3 10x3/uL (4.8-10.8)
[2019-06-29 03:28] LABS: MCV 93.1 fL (80.0-100.0)
[2019-06-29 03:39] LABS: ALBUMIN 1.6 g/dL (3.4-5.0); ANION GAP 10.7 mmol/L (8-16); BILIRUBIN - TOTAL 0.86 mg/dL (0.2-1.3); CARBON DIOXIDE 27.2 mmol/L (21.0-32.0); CREATININE - SERUM 1.3 mg/dL (0.6-1.3); POTASSIUM - SERUM 3.9 mmol/L (3.5-5.1); PROTEIN - SERUM 5.1 g/dL (6.4-8.2)
[2019-06-29 03:44] LABS: LYMPHOCYTES 26 % (15-50); MONOCYTES 10 % (2-11); NEUTROPHILS 54 % (40-80)
[2019-06-29 03:49] LABS: PLATELET ESTIMATE NORMAL
--- NOTE | 2019-06-29 05:16 | NUR ---
NO CHANGES NOTED IN PATIENT, WILL MONITOR FOR CHANGES
--- NOTE | 2019-06-29 07:39 | NUR ---
PT ALERT AND ORIENTED. WILL GET OOB AND MOBILIZE TODAY. VSS.
[2019-06-29 08:25] LABS: MAGNESIUM - SERUM 2.4 mg/dL (1.8-2.4); PHOSPHOROUS 3.2 mg/dL (2.5-4.9)
--- NOTE | 2019-06-29 08:29 | NUR ---
FAMILY AT BS, UPDATE GIVEN AND POC.
--- NOTE | 2019-06-29 10:54 | NUR ---
FC DCD AND PT AMB FEW FEET WITH PT. PT UP TO CHAIR AT PRESENT. PT FOLLOWING COMMAND BUT SLOW TO DIRECT WHEN AMB.
--- NOTE | 2019-06-29 15:17 | NUR ---
RCV`D PT FROM ICU VIA WHEELCHAIR AND HOSPITAL STAFF. FAMILY AT THE BEDSIDE. CURRENTLY RCVING 4L VIA NC.IV LOCATED TO LEFT WRIST RUNNING NS @ 150. NO S/S OF DISTRESS, DENIES NEEDS AT THIS TIME, WILL CONT TO MONITOR. BED LOW, RAILS UP X 2, CALL LIGHT IN REACH.
--- NOTE | 2019-06-29 22:34 | NUR ---
PT C/O ANXIETY AND NOT ABLE TO SLEEP. CALLED DR. CAO. GAVE AMBIEN 10 MG PO PER TELEPHONE ORDER. NO OTHER NEEDS. WILL REASSESS AND CONTINUE TO MONITOR.
[2019-06-30 00:58] VITALS: BP 134/88
--- NOTE | 2019-06-30 01:41 | NUR ---
PT RESTLESS. PT KEEPS TRYING TO VOID. VOIDED SMALL AMOUNT IN BSC. UNABLE TO VOID IN URINAL. PULSE RATE 128. GAVE SCHEDULED LOPRESSOR 10 MG IV. PT VOIDED AGAIN IN BSC. URINE IS DARK, CONCENTRATED. WILL CONTINUE TO MONITOR.
[2019-06-30 04:54] LABS: BASOPHILS 1.9 % (0-2); EOSINOPHILS 0 % (0-7); HEMOGLOBIN 11.7 g/dL (13.5-17.5); IMMATURE GRANULOCYTES 3.4 % (0-5); LYMPHOCYTES 38.8 % (15-50); MCH 29.8 pg (26.0-34.0); MCHC 32.5 g/dL (31.0-37.0); MCV 91.6 fL (80.0-100.0); MEAN PLATELET VOLUME 11.3 fL (7.4-10.4); MONOCYTES 11.3 % (2-11); NEUTROPHILS 44.6 % (40-80); PLATELET COUNT 145 10x3/uL (130-400); RBC 3.93 10x6/uL (4.20-6.10); RDW 15.4 % (11.5-14.5); WBC 9.4 10x3/uL (4.8-10.8)
[2019-06-30 05:07] LABS: ALBUMIN 1.5 g/dL (3.4-5.0); ANION GAP 12.5 mmol/L (8-16); BILIRUBIN - TOTAL 1.41 mg/dL (0.2-1.3); CALCIUM 7.2 mg/dL (8.5-10.1); CARBON DIOXIDE 25.3 mmol/L (21.0-32.0); CREATININE - SERUM 1.3 mg/dL (0.6-1.3); POTASSIUM - SERUM 3.8 mmol/L (3.5-5.1); PROTEIN - SERUM 5.2 g/dL (6.4-8.2)
[2019-06-30 05:10] VITALS: BP 141/91
--- NOTE | 2019-06-30 07:15 | NUR ---
RESTING IN BED, EYES CLOSED. RESPIRATIONS EVEN AND UNLABORED. NO C/O PAIN. NO S/S OF ACUTE DISTRESS NOTED. UP WITH ASSIST. SCDS ON. POD #3 LAP JACINTO, LAP SITES TO ABDOMEN. ON 3L O2, NC. IV TO LEFT WRIST, NS INFUSING @ 125ML/HR. SITE PATENT WITHOUT REDNESS OR SWELLING. EDEMA TO BILATERAL FEET, 1+. PT DENIES ANY NEEDS AT THIS TIME. CALL LIGHT IN REACH. WILL CONTINUE TO MONITOR.
[2019-06-30 09:36] VITALS: BP 162/83
[2019-06-30 12:34] VITALS: BP 140/88
[2019-06-30 16:47] VITALS: BP 157/88
--- NOTE | 2019-06-30 18:15 | NUR ---
METOPROLOL GIVEN IVP ORDERED AT THIS TIME. PUSHED OVER 3.5 MIN. 10 MG. PATIENT HAS NO COMPLAINTS AT THIS TIME. IV INTACT. CALL LIGHT WITHIN REACH.
--- NOTE | 2019-06-30 18:45 | NUR ---
I have reviewed this patient and I concur with the Shift Assessment completed by the Licensed Practical Nurse today this shift.
--- NOTE | 2019-06-30 18:50 | NUR ---
RESTING IN BED, ALERT AND ORIENTED. NO C/O PAIN. NO S/S OF ACUTE DISTRESS NOTED. PT DENIES ANY NEEDS. CALL LIGHT IN REACH.
[2019-06-30 20:56] VITALS: BP 125/82
[2019-07-01 01:48] VITALS: BP 113/64
[2019-07-01 05:24] VITALS: BP 126/80
[2019-07-01 05:53] LABS: BASOPHILS 1.5 % (0-2); EOSINOPHILS 0.2 % (0-7); HEMOGLOBIN 11.3 g/dL (13.5-17.5); IMMATURE GRANULOCYTES 3.7 % (0-5); LYMPHOCYTES 51.3 % (15-50); MCH 29.7 pg (26.0-34.0); MCHC 33.2 g/dL (31.0-37.0); MEAN PLATELET VOLUME 11.2 fL (7.4-10.4); MONOCYTES 9.8 % (2-11); NEUTROPHILS 33.5 % (40-80); PLATELET COUNT 153 10x3/uL (130-400); RDW 15.3 % (11.5-14.5); WBC 9.2 10x3/uL (4.8-10.8)
[2019-07-01 05:57] LABS: MCV 89.5 fL (80.0-100.0)
[2019-07-01 06:08] LABS: ALBUMIN 1.4 g/dL (3.4-5.0); ANION GAP 10.9 mmol/L (8-16); BILIRUBIN - TOTAL 1.51 mg/dL (0.2-1.3); CALCIUM 7.1 mg/dL (8.5-10.1); CARBON DIOXIDE 28.4 mmol/L (21.0-32.0); CREATININE - SERUM 1.2 mg/dL (0.6-1.3); POTASSIUM - SERUM 3.3 mmol/L (3.5-5.1); PROTEIN - SERUM 5.1 g/dL (6.4-8.2)
[2019-07-01 07:59] VITALS: BP 134/87
--- NOTE | 2019-07-01 08:00 | NUR ---
PATIENT SITTING IN CHAIR BRUSHING TEETH. ASSISTING. STAT LOCK DEVICE REMOVED FROM UPPER RIGHT INNER THIGH WITH ALCOHOL. NO NEEDS AT THIS TIME. CL IN REACH. WCTM
[2019-07-01] MEDS ORDERED: ATIVAN0.5 MG PO (08:08)
[2019-07-01] MEDS ORDERED: HYDROCODONE-IB1 EAC3 PO (08:09)
--- NOTE | 2019-07-01 09:52 | MORECARE ---
CASE MANAGEMENT DISCHARGE SUMMARY PATIENT: SARKIS CORTEZ UNIT: [id number] ADM DATE: 06/25/19 AGE: 64 : 59 SEX: M ROOM/BED: D.2240 AUTHOR: LILLIAN LÓPEZ PHYSICIAN: REFERRING PHYSICIAN: ADELAIDA CAO MD DATE OF SERVICE: 07/01/19 Discharge Plan Patient Name: SARKIS CORTEZ Facility: [facility]:[place] : 1955 Planned Disposition: Anticipated Discharge Date: Discharge Date: Expected LOS: Initial Reviewer: [email or web address] Initial Review Date: 06/28/2019 Generated: 07/01/19 10:52 am Comments DCP- Discharge Planning Updated by [email or web address]: Bertha Felton on 07/01/19 8:[address] Patient Name: SARKIS CORTEZ Admission Status: Elective Accout number: [id number] Admission Date: 06-25-2019 : 1955 Admission Diagnosis:SEPSIS, UNSPECIFIED ORGANISM Attending: ADELAIDA CAO Current LOS: 6 Anticipated DC Date: Planned Disposition: Primary Insurance: [employer] Discharge Planning Comments: CM met with patient to complete initial dc planning assessment. CM educated patient on the CM role and verbal consent given by patient to complete assessment. Patient lives at home with his . At discharge patient plans to return and feels this is a safe discharge. CM discussed availability of home health, rehab services, and medical equipment. Patient denied known discharge needs at this time. CM will continue to follow and will assist as needed with dc plans/needs. Cash Register Operator: Bertha Felton DCP- Discharge Planning Updated by [email or web address]: Melina Alatorre on 06/28/19 4:[address] Patient Name: SARKIS CORTEZ Admission Status: Elective Accout number: [id number] Admission Date: 06-25-2019 : 1955 Admission Diagnosis:SEPSIS, UNSPECIFIED ORGANISM Attending: ADELAIDA CAO Current LOS: 3 Anticipated DC Date: Planned Disposition: Primary Insurance: [employer] Discharge Planning Comments: CM came to speak to family per request. Patient is confused and climbing out of bed. Family very emotional. Family requested that patient be transferred to [facility]. Family feels like patient is getting worse and they wanting to seek the best care possible and believe that [facility] can provide that care. CM contacted house admin and Dr. Cao of family request and CM asked if this would be a lateral transfer or higher level of care. Dr. Cao stated that it would be a lateral transfer. CM spoke with family to let them know that with it being a lateral transfer that insurance will not cover the transfer. Family requested CM to get momin quote. CM called [employer] and was given a momin quote $2300.00 with 1/2 due up front then they will work out a payment plan for the rest. CM notified family of quote and they wished to go ahead with transfer request. CM called [facility] transfer center [phone] and fax [phone]. Dr. Cao spoke with physician (hospitalist ICU) and then spoke with infection disease specialist. The infection disease physician requested some additional testing and to give patient 24-48 hrs. here and then if no improvement then [facility] may accept at that point. Dr. Cao spoke with family and let them know what [facility] is requesting. [facility] transfer center stated to call them back if needed over the weekend. [phone]. CM notified CM education supervisor that [facility] infection disease specialist would be admitting patient if he is transferred to [facility]. CM education supervisor stated that it would be classified as a higher level of care at that point because [facility] doesn't have an infection disease specialist. CM notified the patient's family that transfer would be considered a higher level of care if patient is accepted and transferred. CM will continue to follow and assist with discharge planning / needs. Cash Register Operator: Melina YOUNGA - Discharge Planning Initial Assessment Updated by [email or web address]: Bertha Felton on 07/01/19 9:46 am * Is the patient Alert and Oriented? Yes * How many steps to enter\exit or inside your home? 0/0 * PCP Leanna Emmanuel APN at Dr. Fernando in [place] * Pharmacy [facility] in [place] * Preadmission Environment Acute Care Facility * Facility Name Transfer from [facility] * ADLs Independent * Equipment None * List name and contact numbers for known caregivers / representatives who currently or will assist patient after discharge: Sis Cortez - spouse - [phone] Ortiz Sauceda - [place] - [phone] * Verbal permission to speak to the caregivers and representatives has been obtained from the patient. Yes * Community resources currently utilized None * Additional services required to return to the preadmission environment? No * Can the patient safely return to the preadmission environment? Yes * Has this patient been hospitalized within the prior 30 days at any hospital? No Last DP export: 06/28/19 5:01 p Patient Name: SARKIS CORTEZ Page 44179 at 0952 All edits/amendments must be made on the electronic document DICTATION DATE: 07/01/19950 HOLTER SCANNING TECHNICIAN: JAX 07/01/19950 RPT#: [id number] DC DATE: STATUS: ADM IN [facility] [address] [place] [address] END OF REPORT
--- NOTE | 2019-07-01 10:02 | NUR ---
PATIENT AWAKENS EASILY FOR MEDS. WAS ASLEEP ON RIGHT SIDE. CL IN REACH. FRESH WATER PROVIDED. FAMILY WAITING OUTSIDE OF DOOR. WCTM
--- NOTE | 2019-07-01 10:39 | NUR ---
discharge instructions given. patient and verbalized understanding. IV therapy dc'ed from left wrist tip intact. no further needs. wheeled out to [place] by ELAINE Machado.
--- NOTE | 2019-07-02 16:45 | MORECARE ---
CASE MANAGEMENT DISCHARGE SUMMARY PATIENT: SARKIS CORTEZ UNIT: [id number] ADM DATE: 06/25/19 AGE: 64 : 59 SEX: M ROOM/BED: D.2240 AUTHOR: LILLIAN LÓPEZ PHYSICIAN: REFERRING PHYSICIAN: ADELAIDA CAO MD DATE OF SERVICE: 07/02/19 Discharge Plan Patient Name: SARKIS CORTEZ Facility: [facility]:[place] : 1955 Planned Disposition: Anticipated Discharge Date: Discharge Date: 07/01/2019 Expected LOS: Initial Reviewer: [email or web address] Initial Review Date: 06/28/2019 Generated: 07/02/19 5:44 pm Comments DCP- Discharge Planning Updated by [email or web address]: Bertha Felton on 07/01/19 8:[address] Patient Name: SARKIS CORTEZ Admission Status: Elective Accout number: [id number] Admission Date: 06-25-2019 : 1955 Admission Diagnosis:SEPSIS, UNSPECIFIED ORGANISM Attending: ADELAIDA CAO Current LOS: 6 Anticipated DC Date: Planned Disposition: Primary Insurance: [employer] Discharge Planning Comments: CM met with patient to complete initial dc planning assessment. CM educated patient on the CM role and verbal consent given by patient to complete assessment. Patient lives at home with his . At discharge patient plans to return and feels this is a safe discharge. CM discussed availability of home health, rehab services, and medical equipment. Patient denied known discharge needs at this time. CM will continue to follow and will assist as needed with dc plans/needs. Tapering Machine Operator: Bertha Felton DCP- Discharge Planning Updated by [email or web address]: Melina Alatorre on 06/28/19 4:[address] Patient Name: SARKIS CORTEZ Admission Status: Elective Accout number: [id number] Admission Date: 06-25-2019 : 1955 Admission Diagnosis:SEPSIS, UNSPECIFIED ORGANISM Attending: ADELAIDA CAO Current LOS: 3 Anticipated DC Date: Planned Disposition: Primary Insurance: [employer] [facility] Discharge Planning Comments: CM came to speak to family per request. Patient is confused and climbing out of bed. Family very emotional. Family requested that patient be transferred to [facility]. Family feels like patient is getting worse and they wanting to seek the best care possible and believe that [facility] can provide that care. CM contacted housecleaner and Dr. Cao of family request and CM asked if this would be a lateral transfer or higher level of care. Dr. Cao stated that it would be a lateral transfer. CM spoke with family to let them know that with it being a lateral transfer that insurance will not cover the transfer. Family requested CM to get momin quote. CM called [employer] and was given a momin quote $2300.00 with 1/2 due up front then they will work out a payment plan for the rest. CM notified family of quote and they wished to go ahead with transfer request. CM called [facility] transfer center [phone] and fax [phone]. Dr. Cao spoke with physician (hospitalist ICU) and then spoke with infection disease specialist. The infection disease physician requested some additional testing and to give patient 24-48 hrs. here and then if no improvement then [facility] may accept at that point. Dr. Cao spoke with family and let them know what [facility] is requesting. [facility] transfer center stated to call them back if needed over the weekend. [phone]. CM notified CM snow removal supervisor that [facility] infection disease specialist would be admitting patient if he is transferred to [facility]. CM snow removal supervisor stated that it would be classified as a higher level of care at that point because [facility] doesn't have an infection disease specialist. CM notified the patient's family that transfer would be considered a higher level of care if patient is accepted and transferred. CM will continue to follow and assist with discharge planning / needs. Tapering Machine Operator: Melina Alatorre DCJose - Discharge Planning Initial Assessment Updated by [email or web address]: Bertha Felton on 07/01/19 9:46 am * Is the patient Alert and Oriented? Yes * How many steps to enter\exit or inside your home? 0/0 * PCP Leanna Emmanuel APN at Dr. Fernando in [place] * Pharmacy [facility] in [place] * Preadmission Environment Acute Care Facility * Facility Name Transfer from [facility] * ADLs Independent * Equipment None * List name and contact numbers for known caregivers / representatives who currently or will assist patient after discharge: Sis Cortez - spouse - [phone] Ortiz Sauceda - friend - [phone] * Verbal permission to speak to the caregivers and representatives has been obtained from the patient. Yes * Community resources currently utilized None * Additional services required to return to the preadmission environment? No * Can the patient safely return to the preadmission environment? Yes * Has this patient been hospitalized within the prior 30 days at any hospital? No Last DP export: 07/01/19 8:52 a Patient Name: SARKIS CORTEZ Page [id number] at 1645 All edits/amendments must be made on the electronic document DICTATION DATE: 07/02/191643 DEMONSTRATOR SEWING TECHNIQUES: JAX 07/02/191643 RPT#: [id number] DC DATE:07/01/19 STATUS: DIS IN [facility] [address] [place] [address] END OF REPORT
--- NOTE | 2019-07-05 08:22 | DS ---
PATIENT:SARKIS BERNARDO :59 MEDICAL RECORD: [id number] DISCHARGE SUMMARY ADMISSION DATE: 06/25/19 DISCHARGE DATE: 07/01/19 DATE OF ADMISSION: 06/25/2019 DATE OF DISCHARGE: 07/01/2019 ADMISSION DIAGNOSES: 1. Acute cholecystitis. 2. Elevated liver function test. 3. Elevated troponin. DISCHARGE DIAGNOSES: 1. Acute cholecystitis. 2. Elevated liver function test. 3. Elevated troponin. PROCEDURES: 1. Cardiac catheterization on 06/25/2019. 2. Laparoscopic cholecystectomy on 06/27/2019. CONSULTATIONS: To cardiology, pulmonary, internal medicine, and infectious disease at [facility]. REPORT OF HOSPITALIZATION: The patient was admitted to the hospital in transfer from [place] for acute cholecystitis associated with a bump in the patient's troponin. When he e got to the hospital, he was taken to the microbiology lab analyst the following morning where he underwent a cardiac catheterization. This catheterization was normal and so the patient was set up for laparoscopic cholecystectomy the following day. During the patient's hospitalization, he was having fevers up to 100.3 and was originally started on Zosyn, but vancomycin was added for continued fevers. At the time of laparoscopic cholecystectomy, the patient's gallbladder was mildly inflamed. The remainder of the abdomen was inspected and there was no sign of any other intraabdominal processes present. Postoperatively in recovery, the patient was having trouble breathing, so he was sent to the intensive care unit. Over the next couple of days, he was very confused with difficulty breathing, but never required being placed on the ventilator. He did require BiPAP for a night. His white count eventually began to come down and reach normal range fairly quickly after the surgery, but despite this, he continued to have high fevers up to 100.3. The patient had been cultured of his blood and his urine has been checked, his lungs have been checked with x-rays and pulmonary was following the patient. There was no sign of any other infection found. The patient's LFTs continued to be elevated. The family requested a transfer to [facility] and we began talks with their physicians including infectious disease. At that time, they did not feel the transfer was warranted and recommended checking for the flu, which was negative, checking HIV which was negative, and changing the antibiotics off Zosyn, which can sometimes be associated with antibiotic fever. We discontinued the Zosyn and vancomycin and started the patient on Levaquin and Flagyl and at that point, the patient never had another fever. His white count continued to be within normal range. Slowly his mentation came back to baseline. He would have occasional anxiety, which was treated with Ativan. On the day of discharge, his liver function tests were elevated, but they had plateaued. His urine function was normal. He was having good urinary output after 24-hour episode of postoperative urinary DISCHARGE SUMMARY REPORT [id number] SARKIS BERNARDO retention. As he was tolerating a diet, he was having no nausea or vomiting and he was felt to be stable for discharge home at that point. The patient's antibiotics had been stopped and for 24 hours, he had no fever and a normal white count despite no antibiotics. At this point, the only abnormal finding on the patient was elevation of the LFTs with total bilirubin of 1.51, AST 619, ALT 385, and alkaline phosphatase 610. DISCHARGE INSTRUCTIONS: He will return to clinic or call with any questions, concerns, fevers, chills, nausea, vomiting or worsening abdominal pain. ACTIVITIES: No heavy lifting or straining for 2 weeks postoperatively. FOLLOWUP: In clinic with me in 2-3 weeks. DISCHARGE MEDICATIONS: Ativan 0.5 mg t.i.d. p.r.n. anxiety and hydrocodone/ibuprofen 7.5 mg one every 6 hours p.r.n. for pain. TRANSINT:[id number] Voice Confirmation ID: [id number] DOCUMENT ID: [id number] ADELAIDA CAO MD at 0822 CC: [id number] DICTATION DATE: 07/01/19820 ETHNIC ORIGINS TEACHER: 07/02/19 0520 DIS IN 07/01/19 [place] [id number] [place] [id number]
--- NOTE | 2019-07-05 08:22 | CN ---
PATIENT NAME:SARKIS CORTEZ MEDICAL RECORD: [id number] : 59 LOCATION:[facility] [id number] ADMIT DATE: 06/25/19 ACCOUNT: [id number] CONSULTING PHYSICIAN: ADELAIDA CAO MD REFERRING PHYSICIAN: ADELAIDA CAO MD DATE OF CONSULTATION: 06/25/2019 SURGERY CONSULTATION CHIEF COMPLAINT: Abdominal pain. HISTORY OF PRESENT ILLNESS: Mr. Cortez is a 64-year-old white male who was transferred to our facility from [place] with acute cholecystitis. The patient has been complaining of abdominal pain for almost a week. He was originally seen in the [place] ER with temperatures up to 103 and evaluation was performed there and per the family, he was discharged home. He came back to the hospital over the next couple of days with worsening abdominal pain and noted elevation in his LFTs. He continues to have fevers of 103, workup including a CT scan and an ultrasound revealed evidence of gallstones and findings concerning for acute cholecystitis with fat stranding and inflammation around the gallbladder with thickened wall. The patient was set up in [place] for laparoscopic cholecystectomy, but preoperatively his troponin was noted to be elevated. For this reason, he was transferred to our facility and admitted to the hospital under cardiology with Dr. Clark. He is scheduled for a cardiac catheterization tomorrow or this evening, pending results of a stat troponin level. The patient continues to have abdominal pain associated with nausea and high fevers up to 103. The patient has been on Unasyn at [facility]. He denies any jaundice. Denies any diarrhea or constipation. He denies having any of these symptoms in the past. He reports normally being able to eat a regular diet without complication, but currently he has decreased appetite. His initial bilirubin on admission to the hospital in [place] was 2.5, but that number is now normal. His AST, ALT, and alkaline phosphatase are all mildly elevated. PAST MEDICAL HISTORY: Acid reflux. PAST SURGICAL HISTORY: None. MEDICATIONS: None. ALLERGIES: No known drug allergies. FAMILY HISTORY: Noncontributory. SOCIAL HISTORY: He is a former smoker, but does not currently use. Denies any significant alcohol use. REVIEW OF SYSTEMS: GENERAL: He reports fevers and chills. HEENT: No vision changes. CARDIOVASCULAR: No chest pain or shortness of breath. RESPIRATORY: No cough or wheezing. GASTROINTESTINAL: Please see the HPI. HEMATOLOGIC: No melena or hematochezia. NEUROLOGIC: No headaches, seizures, strokes, or numbness. CONSULT REPORT [id number] SARKIS CORTEZ PHYSICAL EXAMINATION: VITAL SIGNS: Temperature 101.3, blood pressure 145/93, pulse 126. GENERAL: He is a well-developed male in no apparent distress. HEENT: Sclerae is nonicteric. Teeth are normal. LUNGS: No audible wheezing. HEART: Sinus tachycardia. ABDOMEN: Soft, distended with pain in the upper abdomen and a positive Browning sign. He also has a ventral hernia near the umbilicus, which is tender to palpation with no overlying skin changes. There is no hepatosplenomegaly. EXTREMITIES: No clubbing, cyanosis, or edema. NEUROLOGICAL: Grossly intact. SKIN: No rashes, lesions or jaundice. LABORATORY DATA: All pending. ASSESSMENT AND PLAN: 1. Acute cholecystitis -- we will plan on a laparoscopic cholecystectomy depending on the results of the cardiac catheterization. This may need to be delayed if the patient has to have stents placed, for which he would require postoperative antiplatelet medication. 2. Elevated troponin. The patient is being evaluated by cardiology and will likely need a cardiac catheterization. I will go ahead and start the patient on Zosyn to cover for the cholecystitis and gave the patient a ASPHALT MIXING MACHINE OPERATOR for pain. 3. Ventral hernia. The plan will be to repair this at the time of surgery. TRANSINT:[id number] Voice Confirmation ID: [id number] DOCUMENT ID: [id number] ADELAIDA CAO MD at 0822 CC: [id number] DICTATION DATE: 07/01/19904 ELECTRICIAN SUPERVISOR AIRPLANE: 07/01/19 1110 DIS IN 07/01/19 [facility] [address] [place] [address]
== END 2019-07-01 10:45 | disposition home or self-care (01) | DRG 853 ==
LOC: D.M2 12:40 → D.ICU 15:18 → D.M2 15:18 → D.ICU 06-27 16:51 → D.MS 06-29 14:57
PROVIDERS: Internal Medicine Interventional Cardiology; Internal Medicine Nephrology; ADMIT Surgery; ATTEND Surgery
PROC: B2151ZZ Fluoroscopy of Left Heart using Low Osmolar Contrast (ICD-10-PCS; 2019-06-26)
PROC: 4A023N7 Measurement of Cardiac Sampling and Pressure, Left Heart, Percutaneous Approach (ICD-10-PCS; 2019-06-26)
PROC: B2111ZZ Fluoroscopy of Multiple Coronary Arteries using Low Osmolar Contrast (ICD-10-PCS; principal; 2019-06-26 08:25)
PROC: 0WQF4ZZ Repair Abdominal Wall, Percutaneous Endoscopic Approach (ICD-10-PCS; 2019-06-27)
PROC: 0FT44ZZ Resection of Gallbladder, Percutaneous Endoscopic Approach (ICD-10-PCS; 2019-06-27)
DX: A41.9 Sepsis, unspecified organism (principal); I21.A1 Myocardial infarction type 2; G92 Toxic encephalopathy; J96.21 Acute and chronic respiratory failure with hypoxia; J44.1 Chronic obstructive pulmonary disease with (acute) exacerbation; N17.9 Acute kidney failure, unspecified; J98.11 Atelectasis; K81.9 Cholecystitis, unspecified; K43.9 Ventral hernia without obstruction or gangrene; R09.02 Hypoxemia; K21.9 Gastro-esophageal reflux disease without esophagitis